=== PATIENT | female | born 1950 | race Caucasian/White ===

== ENCOUNTER → 2017-05-14 | Outpatient (CLI) | payer MEDICARE | END | disposition home or self-care (01) | LOC: CFH 11:35 | PROVIDERS: ATTEND Nurse Practitioner | DX: Z13.820 Encounter for screening for osteoporosis (principal); M81.8 Other osteoporosis without current pathological fracture | CPT/HCPCS: 77080 ==

== ENCOUNTER 2021-01-05 09:55 | Inpatient (IN) | payer MEDICARE ==
[~2021-01-05] VITALS: Ht 170.2 cm; Wt 59.3 kg
[2021-01-05] MEDS ORDERED: PLEASE ENTER HEIGHT AND WEIGHT MC SCH (10:30)
[2021-01-05] MEDS ORDERED: SODIUM CHLORIDE 0.9% 1,000ML IVBOLUS ONE ×2 (10:30→13:30)
[2021-01-05 10:33] LABS: MEAN CORPUSCULAR HEMOGLOBIN 31.5 pg (27.0-34.8); MEAN CORPUSCULAR HGB CONC 34.1 g/dL (32.4-35.8); MEAN PLATELET VOLUME 8.4 fL (7.4-10.4); PLATELET COUNT 165 x10^3/uL (130-400); RED BLOOD COUNT 4.89 x10^6/uL (3.82-5.3); RED CELL DISTRIBUTION WIDTH 13.3 % (9.6-15.2)
[2021-01-05 10:45] LABS: ALANINE AMINOTRANSFERASE 22 U/L (12-78); ALBUMIN 3.1 g/dL (3.4-5.0); ANION GAP 7 mmol/L (5-15); CHLORIDE 107 mmol/L (98-107); CREATININE 2.01 mg/dL (0.55-1.02)
[2021-01-05 10:49] LABS: ALKALINE PHOSPHATASE 95 U/L (45-117); BILIRUBIN,TOTAL 1.4 mg/dL (0.2-1.0); TOTAL PROTEIN 7.1 g/dL (6.4-8.2); TROPONIN I 0.027 ng/mL (0.000-0.045)
[2021-01-05 10:58] LABS: MD YES
--- NOTE | 2021-01-05 11:00 | NUR ---
RECEIVED REPORT FROM CHON BECERRA. ASSUMING CARE AT THIS TIME. PT LAYING ON GURNEY. JC.
[2021-01-05 11:01] LABS: <RBC MORPHOLOGY> NORMAL; BANDS%(MANUAL) 12 % (0-7); LYMPH#(MANUAL) 1.46 x10^3/uL (1-3.4); LYMPHS% (MANUAL) 7 % (22-44); MONOS#(MANUAL) 0.62 x10^3/uL (0.3-2.7); MONOS% (MANUAL) 3 % (2-9); SEG#(MANUAL) 16.22 x10^3/uL (1.8-6.8); SEGS% (MANUAL) 78 % (42-75)
[2021-01-05 11:02] LABS: <PLATELET ESTIMATE> ADEQUATE; <PLT MORPHOLOGY> NORMAL PLT MORPH; PMNS WITH VACUOLES 1+
--- NOTE | 2021-01-05 11:40 | NUR ---
PT AT CT.
--- NOTE | 2021-01-05 12:33 | NUR ---
PT CLEANED UP, PT HAD BEEN INCONTINENT OF URINE/STOOL. URINE COLLECTED VIA STRAIGHT CATH. PT POSITIONED FOR COMFORT. IVF RUNNING. CALL LIGHT IN REACH. FALL PRECAUTIONS IN PLACED.
[2021-01-05 12:45] LABS: MICROSCOPIC INDICATED
[2021-01-05] MEDS ORDERED: CEFTRIAXONE PMX 1GM/50ML 50 ML IVPB ONE (13:30)
[2021-01-05] MEDS ORDERED: SODIUM CHLORIDE FLUSH 10ML SYR IVF ONE (13:30)
--- NOTE | 2021-01-05 13:50 | NUR ---
SECOND PIV PLACED, DT PREVIOUS PIV IS POSITIONAL AND NOT ALLOWING BOLUS IVF TO INFUSE QUICKLY.
[2021-01-05] MEDS ORDERED: CEFTRIAXONE PMX 1GM/50ML 50 ML ONE (14:05)
--- NOTE | 2021-01-05 14:49 | NUR ---
LAB AT BEDSIDE. US AT BEDSIDE.
[2021-01-05] MEDS ORDERED: DOCUSATE 100 MG CAPSULE PO PRN (15:00)
[2021-01-05] MEDS ORDERED: QUETIAPINE 25MG TABLET PO PRN (15:00)
[2021-01-05] MEDS ORDERED: ONDANSETRON 2MG/ML, 2ML IVPush PRN (15:00)
[2021-01-05] MEDS ORDERED: ACETAMINOPHEN 325 MG TABLET PO PRN (15:00)
[2021-01-05] MEDS ORDERED: MELATONIN 5 MG TABLET PO PRN (15:00)
[2021-01-05 15:11] LABS: HCT (SEDRATE) 40.2 % (34.6-47.8)
[2021-01-05 15:13] LABS: CHLORIDE,URINE RANDOM 30 mmol/L; POTASSIUM,URINE RANDOM 73 mmol/L; SODIUM,URINE RANDOM 15 mmol/L
[2021-01-05 15:18] LABS: INTERNATIONAL NORMALIZED RATIO 1.11 (0.93-1.1); PROTHROMBIN TIME 11.9 Seconds (9.6-11.5)
[2021-01-05 15:29] LABS: FREE T4 (FREE THYROXINE) 1.31 ng/dL (0.76-1.46)
--- NOTE | 2021-01-05 16:49 | NUR ---
REPORT GIVEN TO SUDHEER BECERRA. PT RTG TO ROOM 488-2
--- NOTE | 2021-01-05 17:44 | NUR ---
PT PULLED RIGHT HAND PIV OUT. TIP INTACT.
[2021-01-05 18:40] VITALS: BP 97/68
[2021-01-05] MEDS: HEPARIN 5,000 UNITS/ML, 1ML SQ SCH (18:40)
[2021-01-05] MEDS: LACTATED RINGERS 1,000 ML IV SCH (18:40)
[2021-01-05 20:12] VITALS: BP 95/65
[2021-01-06 02:15] VITALS: BP 91/65
[2021-01-06] MEDS: HEPARIN 5,000 UNITS/ML, 1ML SQ SCH ×3 (02:52→18:22)
[2021-01-06 05:41] LABS: BASOPHILS % (AUTO) 0 % (0-1); EOSINOPHILS % (AUTO) 1 % (1-7); LYMPHOCYTES % (AUTO) 9 % (22-44); MEAN CORPUSCULAR HEMOGLOBIN 31.4 pg (27.0-34.8); MEAN CORPUSCULAR HGB CONC 34.4 g/dL (32.4-35.8); MEAN PLATELET VOLUME 9.1 fL (7.4-10.4); MONOCYTES % (AUTO) 10 % (2-9); NEUTROPHILS % (AUTO) 80 % (42-75); PLATELET COUNT 137 x10^3/uL (130-400); RED BLOOD COUNT 4.46 x10^6/uL (3.82-5.3); RED CELL DISTRIBUTION WIDTH 13.4 % (9.6-15.2)
[2021-01-06 05:51] LABS: ANION GAP 9 mmol/L (5-15); CALCIUM 8.4 mg/dL (8.5-10.1); CHLORIDE 109 mmol/L (98-107); CREATININE 0.88 mg/dL (0.55-1.02)
[2021-01-06] MEDS: LACTATED RINGERS 1,000 ML IV SCH (06:14)
[2021-01-06 06:21] LABS: MD SCAN
[2021-01-06] MEDS ORDERED: MAGNESIUM SULFATE PMX 2GM/50ML 50 ML IV ONE (06:30)
[2021-01-06] MEDS ORDERED: POTASSIUM CHLORIDE 20 MEQ TAB.ER.PRT PO ONE ×2 (06:30→14:30)
[2021-01-06] MEDS ORDERED: POTASSIUM CHLORIDE 20 MEQ in SODIUM CHLORIDE 0.9% 250 ML IV ONE (06:30)
[2021-01-06 07:30] VITALS: BP 108/72
[2021-01-06] MEDS: CEFTRIAXONE PMX 2GM/50ML 50 ML IVPB SCH (11:27)
[2021-01-06 14:42] VITALS: BP 129/76
[2021-01-06 20:00] VITALS: BP 122/75
[2021-01-07] MEDS: HEPARIN 5,000 UNITS/ML, 1ML SQ SCH ×3 (01:27→17:45)
[2021-01-07 02:00] VITALS: BP 113/77
[2021-01-07 05:49] LABS: BASOPHILS % (AUTO) 0 % (0-1); EOSINOPHILS % (AUTO) 1 % (1-7); LYMPHOCYTES % (AUTO) 17 % (22-44); MEAN CORPUSCULAR HEMOGLOBIN 31.3 pg (27.0-34.8); MEAN CORPUSCULAR HGB CONC 34.5 g/dL (32.4-35.8); MEAN PLATELET VOLUME 9.3 fL (7.4-10.4); MONOCYTES % (AUTO) 8 % (2-9); NEUTROPHILS % (AUTO) 74 % (42-75); PLATELET COUNT 153 x10^3/uL (130-400); RED BLOOD COUNT 4.25 x10^6/uL (3.82-5.3); RED CELL DISTRIBUTION WIDTH 13.1 % (9.6-15.2)
[2021-01-07 05:53] LABS: MD NO
[2021-01-07 06:04] LABS: CHLORIDE 110 mmol/L (98-107)
[2021-01-07 06:15] LABS: ALANINE AMINOTRANSFERASE 19 U/L (12-78); ALBUMIN 2.3 g/dL (3.4-5.0); ALKALINE PHOSPHATASE 77 U/L (45-117); ANION GAP 8 mmol/L (5-15); BILIRUBIN,TOTAL 0.4 mg/dL (0.2-1.0); CALCIUM 8.5 mg/dL (8.5-10.1); TOTAL PROTEIN 5.5 g/dL (6.4-8.2)
[2021-01-07 06:38] VITALS: BP 119/78
[2021-01-07] MEDS: CEFTRIAXONE PMX 2GM/50ML 50 ML IVPB SCH (10:59)
[2021-01-07 12:20] VITALS: BP 111/76
[2021-01-07 12:22] LABS: CREATININE,URINE RANDOM 39.3 mg/dL
[2021-01-07 18:21] VITALS: BP 122/83
[2021-01-08 00:01] VITALS: BP 115/80
[2021-01-08] MEDS: HEPARIN 5,000 UNITS/ML, 1ML SQ SCH ×3 (02:06→17:37)
[2021-01-08 06:54] VITALS: BP 122/79
[2021-01-08] MEDS: CEFTRIAXONE PMX 2GM/50ML 50 ML IVPB SCH (09:52)
[2021-01-08 12:19] VITALS: BP 118/85
[2021-01-08 18:38] VITALS: BP 112/77
[2021-01-09] MEDS: HEPARIN 5,000 UNITS/ML, 1ML SQ SCH ×2 (01:31→09:20)
[2021-01-09 02:45] VITALS: BP 123/80
[2021-01-09 06:30] VITALS: BP 116/80
[2021-01-09] MEDS: CEFTRIAXONE PMX 2GM/50ML 50 ML IVPB SCH (09:26)
[2021-01-09] MEDS ORDERED: CEFT2FRO2 IV (10:29)
[2021-01-09 12:15] VITALS: BP 116/83
== END 2021-01-09 17:08 | DRG 871 ==
LOC: ED 12:58 → EDIP 14:36 → 4EST 17:42
PROVIDERS: ADMIT Hospitalist; ATTEND Family Medicine
PROC: 0T9B70Z Drainage of Bladder with Drainage Device, Via Natural or Artificial Opening (ICD-10-PCS; principal; 2021-01-05)
DX: A41.9 Sepsis, unspecified organism (principal); G93.41 Metabolic encephalopathy; N39.0 Urinary tract infection, site not specified; N17.9 Acute kidney failure, unspecified; E87.2 Acidosis; B96.20 Unspecified Escherichia coli [E. coli] as the cause of diseases classified elsewhere; E86.0 Dehydration; L30.9 Dermatitis, unspecified; L68.0 Hirsutism; R32 Unspecified urinary incontinence; R62.7 Adult failure to thrive; R65.20 Severe sepsis without septic shock; Z87.891 Personal history of nicotine dependence; F03.90 Unspecified dementia, unspecified severity, without behavioral disturbance, psychotic disturbance, mood disturbance, and anxiety
CPT/HCPCS: 36415; 70450; 71045; 76700; 80048; 80053; 80074; 81001; 82140; 82436; 82550; 82570; 83605; 83735; 84100; 84132; 84133; 84156; 84300; 84402; 84403; 84439; 84443; 84484; 85025; 85610; 85651; 87040; 87077; 87086; 87186; 93005; 96361; 96365; G0378; J0696; J1644; J3480; 92523-GN; J3475; J7030; J7050; J7120